=== PATIENT | male | born 1980 | race Caucasian/White ===

== ENCOUNTER 2022-08-09 02:38 | Outpatient (CLI) | payer OTHER, SELFPAY ==
[2022-08-09 08:57] LABS: Calculated LDL 86 mg/dL (<100); Cholesterol 151 mg/dL (<200); HDL Cholesterol 55 mg/dL (40-60); Triglyceride 53 mg/dL (<150)
[2022-08-09 09:06] LABS: Hemoglobin A1C 5.5 % (<5.7)
== END 2022-08-09 02:39 | disposition home or self-care (01) ==
LOC: LBO 02:38
PROVIDERS: PCP Nurse Practitioner Family; Visit Provider Nurse Practitioner Family
DX: Z13.220 Encounter for screening for lipoid disorders (principal); Z13.1 Encounter for screening for diabetes mellitus
CPT/HCPCS: 36415; 80061; 83036

== ENCOUNTER 2023-04-21 02:22 | Outpatient (CLI) | payer OTHER, SELFPAY ==
--- NOTE | 2023-04-21 07:15 | DI.RAD_ITS ---
Exam(s) XR THORACIC SPINE COMPLETE EXAM: XR THORACIC SPINE COMPLETE CLINICAL HISTORY: evaluate pathology,pleurodynia,pain. TECHNIQUE: 2D digital imaging was performed of the thoracic spine. Three views were obtained. AP, swimmer's and lateral views were obtained. COMPARISON: No exams were available for comparison FINDINGS: BONES: There is no fracture or destructive lesion. Mild degenerative changes are seen in the thoracic spine with disc space narrowing and small osteophytes present at multiple levels. DISKS:Alignment is within normal limits. Mild multilevel disc space narrowing. SOFT TISSUE: Visualized lungs are clear. IMPRESSION: Mild degenerative changes in the thoracic spine. DATA REPOSITORY: RADIATION DOSE DELIVERED:
--- NOTE | 2023-04-21 07:15 | DI.RAD_ITS ---
Exam(s) XR RIBS LT W PA LAT CHEST EXAM: XR RIBS LT W PA LAT CHEST CLINICAL HISTORY: evaluate pathology,pleurodynia,r07.81 TECHNIQUE: 2D digital imaging was performed. Six images are obtained. COMPARISON: No priors for comparison. FINDINGS: MEDIASTINUM: Normal. HEART: Normal. PULMONARY VASCULATURE: Normal. LUNGS: Clear. PLEURAL SPACE: No pleural effusion or pneumothorax. BONE:Within normal limits for the patient's age. LEFT RIBS: Normal. OTHER FINDINGS:Normal. IMPRESSION: 1. No acute pulmonary findings. 2. Unremarkable left ribs. DATA REPOSITORY: RADIATION DOSE DELIVERED:
== END 2023-04-21 02:42 ==
LOC: DI 02:22
PROVIDERS: PCP Nurse Practitioner Family; Visit Provider Nurse Practitioner Family
DX: R07.81 Pleurodynia (principal); M51.34 Other intervertebral disc degeneration, thoracic region
CPT/HCPCS: 71046; 71100; 72072

== ENCOUNTER 2024-08-17 10:27 | Outpatient (CLI) | payer OTHER, SELFPAY ==
[2024-08-17 09:40] LABS: Hemoglobin A1C 5.7 % (<5.7)
[2024-08-17 10:14] LABS: Calculated LDL 96 mg/dL (<100); Cholesterol 162 mg/dL (<200); HDL Cholesterol 57 mg/dL (40-60); Triglyceride 46 mg/dL (<150)
[2024-08-17 22:30] LABS: PSA, Screening 0.6 ng/mL (<=2.5)
== END 2024-08-17 10:28 | disposition home or self-care (01) ==
LOC: LBO 10:27
PROVIDERS: PCP Nurse Practitioner Family; Visit Provider Nurse Practitioner Family
DX: Z13.220 Encounter for screening for lipoid disorders (principal); Z13.1 Encounter for screening for diabetes mellitus; Z12.5 Encounter for screening for malignant neoplasm of prostate
CPT/HCPCS: 36415; 80061; 84153; 83036